=== PATIENT | female | born 1945 | race Caucasian/White ===

== ENCOUNTER 2017-07-10 09:12 | Emergency (ER) | payer MEDICAID ==
[2017-07-10] MEDS: KETOROLAC 15 MG INJ IM (10:08)
== END 2017-07-10 11:50 | disposition home or self-care (01) ==
LOC: FTE 09:12
DX: M79.605 Pain in left leg (principal); I10 Essential (primary) hypertension
CPT/HCPCS: 73510; 73550; 96372; 99284-25